=== PATIENT | male | born 2000 | race African-American/Black ===

== ENCOUNTER 2019-09-21 14:00 | Emergency (ER) | payer SELFPAY ==
[2019-09-21 14:23] VITALS: BP 136/86
--- NOTE | 2019-09-21 14:32 | UC ---
Minor Trauma HPI - HPI Summary HPI Summary: 18-year-old male who was wrestling when another wrestler head butted him in the right jaw on Friday, 3 days ago. No loss of consciousness and denies any neck pain. Patient states his right lower jaw become swollen today and more painful. He denies any fever or chills. - History of Current Complaint Chief Complaint: UCDentalProblem Stated Complaint: jaw pain Time Seen by Provider: 09/21/19 14:31 Hx Obtained From: Patient Onset/Duration: Sudden Onset Onset Of Pain: Immediate Severity Initially: Mild Severity Currently: Moderate Pain Intensity: 3 Mechanism Of Injury: Blunt Trauma, Direct Blow, Other - Patient was wrestling when the other wrestler accidentally head butted him in the right jaw. Aggravating Factor(s): Other: - Palpation and talking. Alleviating Factor(s): Nothing Associated Signs And Symptoms: Positive: Swelling - Right lower jaw swelling today. - Allergies/Home Medications Allergies/Adverse Reactions: Allergies Allergy/AdvReac Type Severity Reaction Status Date / Time No Known Allergies Allergy Verified 09/21/19 14:22 Home Medications: Home Medications Aspirin 650 mg PO ONCE 09/21/19 [History Confirmed 09/21/19] NK [No Home Medications Reported] 09/21/19 [History Confirmed 09/21/19] PMH/Surg Hx/FS Hx/Imm Hx Previously Healthy: Yes - Surgical History Surgical History: None - Family History Known Family History: Positive: Non-Contributory - Social History Occupation: Student Lives: Dormitory/Roommates Alcohol Use: None Substance Use Type: None Smoking Status (MU): Never Smoked Tobacco Review of Systems All Other Systems Reviewed And Are Negative: Yes Skin: Positive: Other - Swelling to right lower jaw. ENT: Positive: Dental Pain - Toothache right distal lower molars. Is Patient Immunocompromised?: No Physical Exam Triage Information Reviewed: Yes Appearance: Well-Appearing, No Pain Distress, Well-Nourished Vital Signs: Initial Vital Signs Temp 99.1 F 09/21/19 14:17 Pulse 66 09/21/19 14:17 Resp 16 09/21/19 14:17 BP 136/86 09/21/19 14:17 Pulse Ox 96 09/21/19 14:17 Vital Signs Reviewed: Yes Eyes: Positive: Conjunctiva Clear - PERRLA, EOMI. ENT: Positive: Pharynx normal, TMs normal, Uvula midline Dental: Positive: Percussion Tenderness @ - Tender on palpation to the distal right lower molars. I do not see any abscess formation. The gumline itself is normal in color. Neck: Positive: Supple, Nontender, No Lymphadenopathy Respiratory: Positive: Lungs clear, Normal breath sounds, No respiratory distress, No accessory muscle use Cardiovascular: Positive: RRR, No Murmur, Pulses Normal, Brisk Capillary Refill Musculoskeletal: Positive: ROM Limited @ - Pain right lower jaw with opening his mouth wide. Good maxillary stability. Right Mandibular pain when checking the lower jaw for stability. C-spine nontender. Teeth are intact. Swelling to right lower jaw with tenderness on palpation. Neurological: Positive: Alert, Muscle Tone Normal Psychological Exam: Normal Skin: Positive: Other - See above notes. Minor Trauma Course/Dx - Course Course Of Treatment: Maxillofacial CT:FINDINGS: There is soft tissue swelling lateral and inferior to the horizontal ramus of the mandible on the right side. In addition there is an ill-defined fluid collection in that region containing bubbles of air most consistent with an abscess. This measures approximately 2.1 x 1.2 cm in size. In addition there is a an adjacent transverse nondisplaced fracture of the posterior aspect of the horizontal ramus of the mandible on the right which extends to the tooth socket for the adjacent most posterior molar tooth. No additional fracture is seen. The paranasal sinuses are clear. The results of this exam were discussed with the referring clinician. IMPRESSION: THERE IS A TRANSVERSE NONDISPLACED FRACTURE OF THE POSTERIOR ASPECT OF THE HORIZONTAL RAMUS OF THE MANDIBLE ON THE RIGHT SIDE. THE FRACTURE EXTENDS TO THE TO THE SOCKET FOR THE MOST POSTERIOR MOLAR TOOTH. IN ADDITION THERE IS A FLUID COLLECTION WITH AIR BUBBLES INFERIOR TO THE REGION OF THE FRACTURE MOST CONSISTENT WITH AN ABSCESS. The patient was given Pen-Vee K 500 mg by mouth here. He was given a copy of the CT disc as well as the written description of the fracture and possible abscess. I called the transfer center and alerted them the patient would be coming by private car. The patient is awake and alert and in no distress. He was advised not to eat or drink anything between [facility] and [facility]. - Differential Dx/Diagnosis Provider Diagnosis: Fracture of right side of mandible, Dental abscess Discharge ED - Sign-Out/Discharge Documenting (check all that apply): Patient Departure All imaging exams completed and their final reports reviewed: Yes - Discharge Plan Condition: Fair Disposition: HOME-RECOMMEND TO ED Patient Education Materials: Jaw Fracture in Adults (ED) Referrals: No Primary Care Phys,NOPCP [Primary Care Provider] - Additional Instructions: No eating or drinking until you are evaluated at [facility] emergency department. Go directly to [facility] emergency room. I consulted with the transfer center to advise them of the patient's impending arrival. - Billing Disposition and Condition Condition: FAIR Disposition: Home-Recommend to ED - Attestation Statements Provider Attestation: This patient was not seen by me Arianna Rowley COMBER TENDER discussed case and CT results with me and I agree with transferring to a center that can provide a higher level of care
[2019-09-21] MEDS ORDERED: Penicillin VK TAB* 250 MG PO ONE (15:44)
== END 2019-09-21 15:52 | disposition home health service (06) ==
LOC: UCEAST 14:00
DX: K04.7 Periapical abscess without sinus (principal); S02.641A Fracture of ramus of right mandible, initial encounter for closed fracture; Z79.82 Long term (current) use of aspirin; W51.XXXA Accidental striking against or bumped into by another person, initial encounter; Y93.72 Activity, wrestling; Y92.9 Unspecified place or not applicable
CPT/HCPCS: 70486; 99212; A9270-GY; G0463